=== PATIENT | female | born 1995 | race Caucasian/White ===

== ENCOUNTER 2025-04-01 18:50 | Emergency (ER) | payer SELFPAY ==
[2025-04-01 18:51] VITALS: BMI 18.3
[2025-04-01 20:51] VITALS: BP 113/75; PULSE 103; RESP 19; TEMP 37.1; O2SAT 97; BMI 17.6
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
--- NOTE | 2025-04-01 21:18 | PC.NURSE ---
patient spoke to provider verbalized she wishes to leave and go to a hospital closer to her home. Per provider pt eloped at [id number]
--- NOTE | 2025-04-01 21:23 | PC.NURSE ---
PT INFORMED PROVIDER THAT SHE WILL GO AND GO TO [facility].
== END 2025-04-01 21:24 | disposition left against medical advice (07) ==
LOC: SERX 20:23
PROVIDERS: Emergency Provider Emergency Medicine
DX: Z04.1 Encounter for examination and observation following transport accident (principal); Z53.29 Procedure and treatment not carried out because of patient's decision for other reasons
CPT/HCPCS: 80053; 80307; 80320; 81025; 85025; 99281; G0480